=== PATIENT | female | born 1960 | race Caucasian/White ===

== ENCOUNTER → 2017-07-16 | Outpatient (CLI) | payer BC ==
[2017-07-16 18:17] LABS: ALT/SGPT 18 U/L (12-78); BLOOD UREA NITROGEN 9 mg/dl (7-18); CARBON DIOXIDE 28 mmol/L (21-32); CREATININE 0.67 mg/dl (0.60-1.20); GLUCOSE 110 mg/dl (70-99); SODIUM 138 mmol/L (136-145)
[2017-07-16 18:28] LABS: CHOLESTEROL 136 mg/dl (0-200); LDL CHOLESTEROL (DIRECT) 74 mg/dl
== END | disposition home or self-care (01) ==
LOC: C.LABMFLN 15:13
PROVIDERS: ATTEND Family Medicine
DX: E78.00 Pure hypercholesterolemia, unspecified (principal); I10 Essential (primary) hypertension; M54.5 Low back pain; E03.9 Hypothyroidism, unspecified